=== PATIENT | female | born 1960 | race Caucasian/White ===

== ENCOUNTER 2017-10-14 18:45 | Emergency (ER) | payer MEDICAID, OTHER ==
[~2017-10-14] VITALS: Ht 162.6 cm; Wt 72.6 kg
[~2017-10-14 18:45] MED LIST: BENTYL10 MG ORAL; PREDNISONE5 M4 PO; PROAIR HFA8.5 GM INH; THEOPHYLLI PO; ZOFRAN4 MG ORAL
--- NOTE | 2017-10-14 19:39 | Emergency Room Report ---
History of Present Illness General Chief Complaint: Abdominal Pain Source: Patient Present Illness HPI Patient presents with 3 days of epigastric pain. She has felt nauseated. She' s been taking Mylanta. The pain has been severe and she rates it at 11/10. She 's had this problem before and she says is like her gastritis. She denies vomiting blood or having melena. She felt slightly feverish but denies documented temperature. She denies dysuria. She feels dehydrated. She mainly wants a GI cocktail at this time. No chest pain, cough, dyspnea, rashes, joint pain. Denies prior endoscopy. Prior visits for COPD, asthma and hypoxia. Denies wheezing. Allergies: Coded Allergies: No Known Allergies (Unverified , 08/28/13) Patient History Past Medical History: see triage record Social History: Reports: smoking, alcohol use Reviewed Nursing Documentation: PMH: Agreed, PSxH: Agreed Nursing Documentation-PMH Hx Asthma: Yes Review of Systems All Other Systems: negative except mentioned in HPI Physical Exam Vital Signs Date Time Temp Pulse Resp B/P (MAP) Pulse Ox O2 Delivery O2 Flow Rate FiO2 10/14/17 19:09 98.4 101 16 109/79 100 Room Air 98.4 Sp02 EP Interpretation: reviewed, normal General Appearance: well appearing, no apparent distress, GCS 15 Head: normocephalic Eyes: bilateral eye normal inspection, bilateral eye PERRL ENT: moist mucus membranes Neck: supple Respiratory: lungs clear, normal breath sounds Cardiovascular #1: regular rate, rhythm Cardiovascular #2: 2+ radial (R) Gastrointestinal: soft, no guarding, tenderness - epigastric Musculoskeletal: back normal, gait/station normal, normal range of motion Neurologic: alert, oriented x3, grossly normal Psychiatric: mood/affect normal Skin: normal inspection, warm/dry Medical Decision Making Diagnostic Impression: Primary Impression: Gastritis Qualified Codes: K29.00 - Acute gastritis without bleeding Additional Impression: UTI (urinary tract infection) Qualified Codes: N30.00 - Acute cystitis without hematuria ER Course Patient presents with epigastric pain with history of alcohol and tobacco abuse. Differential includes gastritis, acute myocardial infarction, peptic ulcer disease, gastroenteritis amongst others. Evaluation will be with EKG, and labs. The patient was treated with IV hydration, GI cocktail, Pepcid and Zofran and a small dose of morphine. Imaging studies not indicated. EKG without injury. Labs with normal WBC and H/H. Pyuria. Pain resolved with treatment. Discussed need to stop smoking. Patient stable for outpatient observation and treatment. Laboratory Tests Test 10/14/17 19:55 White Blood Count 7.9 K/UL (4.8-10.8) Red Blood Count 6.84 M/UL (4.20-5.40) H Hemoglobin 14.3 G/DL (12.0-16.0) Hematocrit 45.0 % (37.0-47.0) Mean Corpuscular Volume 66 FL (80-99) L Mean Corpuscular Hemoglobin 20.9 PG (27.0-31.0) L Mean Corpuscular Hemoglobin Concent 31.8 G/DL (32.0-36.0) L Red Cell Distribution Width 17.5 % (11.6-14.8) H Platelet Count 317 K/UL (150-450) Mean Platelet Volume 7.7 FL (6.5-10.1) Neutrophils (%) (Auto) 56.1 % (45.0-75.0) Lymphocytes (%) (Auto) 30.7 % (20.0-45.0) Monocytes (%) (Auto) 9.8 % (1.0-10.0) Eosinophils (%) (Auto) 2.2 % (0.0-3.0) Basophils (%) (Auto) 1.1 % (0.0-2.0) Prothrombin Time 10.0 SEC (9.30-11.50) Prothrombin Time INR 1.0 (0.9-1.1) PTT 27 SEC (23-33) Urine Color Yellow Urine Appearance Slightly cloudy Urine pH 5 (4.5-8.0) Urine Specific Deloit 1.025 (1.005-1.035) Urine Protein 2+ (NEGATIVE) H Urine Glucose (UA) Negative (NEGATIVE) Urine Ketones 1+ (NEGATIVE) H Urine Occult Blood 1+ (NEGATIVE) H Urine Nitrite Negative (NEGATIVE) Urine Bilirubin Negative (NEGATIVE) Urine Urobilinogen Normal MG/DL (0.0-1.0) Urine Leukocyte Esterase 1+ (NEGATIVE) H Urine RBC 0-2 /HPF (0 - 2) Urine WBC 5-10 /HPF (0 - 2) H Urine Squamous Epithelial Cells Moderate /LPF (NONE/OCC) H Urine Bacteria Moderate /HPF (NONE) H Sodium Level 139 MMOL/L (136-145) Potassium Level 4.0 MMOL/L (3.5-5.1) Chloride Level 103 MMOL/L (98-107) Carbon Dioxide Level 28 MMOL/L (21-32) Anion Gap 8 mmol/L (5-15) Blood Urea Nitrogen 13 mg/dL (7-18) Creatinine 0.9 MG/DL (0.55-1.30) Estimate Glomerular Filtration Rate > 60 mL/min (>60) Glucose Level 111 MG/DL (74-106) H Calcium Level 9.6 MG/DL (8.5-10.1) Total Bilirubin 0.7 MG/DL (0.2-1.0) Aspartate Amino Transferase (AST) 18 U/L (15-37) Alanine Aminotransferase (ALT) 34 U/L (12-78) Alkaline Phosphatase 115 U/L (46-116) Troponin I 0.000 ng/mL (0.000-0.056) Total Protein 8.1 G/DL (6.4-8.2) Albumin 4.0 G/DL (3.4-5.0) Globulin 4.1 g/dL Albumin/Globulin Ratio 1.0 (1.0-2.7) Lipase 86 U/L (73-393) EKG Diagnostic Results Rate: normal Rhythm: NSR ST Segments: no acute changes Rhythm Strip Diag. Results EP Interpretation: yes Rhythm: NSR, no PVC's, no ectopy Last Vital Signs Date Time Temp Pulse Resp B/P (MAP) Pulse Ox O2 Delivery O2 Flow Rate FiO2 10/14/17 21:51 98.4 68 18 134/64 100 Room Air 98.4 Status: improved Disposition: HOME, SELF-CARE Condition: Improved Scripts Mag Hydrox/Al Hydrox/Simeth (MAALOX MAXIMUM STRENGTH SUSP) 355 Ml Oral.susp 30 ML PO Q6HR, #240 ML Prov: Inocencio Rodriguez M.D. 10/14/17 Famotidine (PEPCID) 20 Mg Tablet 20 MG ORAL DAILY, #30 TAB 0 Refills Prov: Inocencio Rodriguez M.D. 10/14/17 Inocencio Rodriguez M.D. Oct 14, 2017 19:39
[2017-10-14] MEDS ORDERED: Dicyclomine HCl 10mg/5ml oral soln ORAL ONE (19:45)
[2017-10-14] MEDS ORDERED: Mylanta II UD 30ml ORAL ONE (19:45)
[2017-10-14] MEDS ORDERED: Morphine Sulfate 2mg/ml Inj IVP ONE (19:45)
[2017-10-14] MEDS ORDERED: Lidocaine 2% Visc 15ml soln ORAL ONE (19:45)
[2017-10-14 20:11] LABS: BASOPHILS % (AUTO) 1.1 % (0.0-2.0); EOSINOPHILS % (AUTO) 2.2 % (0.0-3.0); HEMOGLOBIN 14.3 G/DL (12.0-16.0); LYMPHOCYTES % (AUTO) 30.7 % (20.0-45.0); MEAN CORPUSCULAR VOLUME 66 FL (80-99); MONOCYTES % (AUTO) 9.8 % (1.0-10.0); NEUTROPHILS % (AUTO) 56.1 % (45.0-75.0); PLATELET COUNT 317 K/UL (150-450); RED BLOOD COUNT 6.84 M/UL (4.20-5.40); RED CELL DISTRIBUTION WIDTH 17.5 % (11.6-14.8); WHITE BLOOD COUNT 7.9 K/UL (4.8-10.8)
[2017-10-14 20:17] LABS: APPEARANCE,URINE SLIGHTLY CLOUDY; BILIRUBIN, URINE NEGATIVE (NEGATIVE); GLUCOSE, URINE (UA) NEGATIVE (NEGATIVE); KETONES,URINE 1+ (NEGATIVE); LEUKOCYTE ESTERASE ,URINE 1+ (NEGATIVE); NITRITE,URINE NEGATIVE (NEGATIVE); PH,URINE 5 (4.5-8.0); PROTEIN,URINE 2+ (NEGATIVE); UROBILINOGEN,URINE NORMAL MG/DL (0.0-1.0)
[2017-10-14 20:20] LABS: COLOR,URINE YELLOW
[2017-10-14 20:29] LABS: ANION GAP 8 mmol/L (5-15); BLOOD UREA NITROGEN 13 mg/dL (7-18); CALCIUM 9.6 MG/DL (8.5-10.1); CARBON DIOXIDE 28 MMOL/L (21-32); CHLORIDE 103 MMOL/L (98-107); CREATININE 0.9 MG/DL (0.55-1.30); SODIUM 139 MMOL/L (136-145)
[2017-10-14 20:33] LABS: ALANINE AMINOTRANSFERASE 34 U/L (12-78); ALKALINE PHOSPHATASE 115 U/L (46-116); ASPARTATE AMINO TRANSFERASE 18 U/L (15-37); BILIRUBIN,TOTAL 0.7 MG/DL (0.2-1.0)
[2017-10-14 20:39] VITALS: BP 131/59
[2017-10-14] MEDS ORDERED: MAALOX MAXIMUM355 M1 PO (21:41)
[2017-10-14] MEDS ORDERED: PEPCID20 MG ORAL (21:41)
[2017-10-14 21:50] VITALS: BP 134/64
[2017-10-14 21:51] VITALS: BP 134/64
--- NOTE | 2017-10-17 20:16 | Cardiology Report ---
APPROVED REPORT EKG Measurement Heart [id number] [id number] CHx298 Normal sinus rhythm Normal ECG
== END 2017-10-14 21:53 | disposition home or self-care (01) ==
LOC: EMR 19:36
DX: K29.00 Acute gastritis without bleeding (principal); N30.00 Acute cystitis without hematuria; F17.200 Nicotine dependence, unspecified, uncomplicated; J44.9 Chronic obstructive pulmonary disease, unspecified
CPT/HCPCS: 36415; 80053; 81003; 83690; 84484; 85025; 85610; 85730; 87086; 93005; 96361; 96374; 96375; 99284; J2270; J2405; S0028

== ENCOUNTER 2018-10-20 17:49 | Emergency (ER) | payer MEDICAID ==
[~2018-10-20] VITALS: Ht 162.6 cm; Wt 79.4 kg
[~2018-10-20 17:49] MED LIST changes: +MAALOX MAXIMUM355 M1 PO; +PEPCID20 MG ORAL
--- NOTE | 2018-10-20 18:00 | NUR ---
ED Nurse Note: Patient walked into Ed, patient felt her eye lash in her left eye, this morning, patient woke up with left eye redness. patient denies any blurry vision and pain. a/o x4, ambulatory.
--- NOTE | 2018-10-20 18:01 | NUR ---
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
[2018-10-20 18:16] VITALS: BP 127/46
--- NOTE | 2018-10-20 18:45 | Emergency Room Report ---
History of Present Illness General Chief Complaint: Eye Problems Source: Patient Present Illness HPI 58-year-old female with history of glaucoma and loss of 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 Patient reports that she continues to scratch her eye however cannot report any blurred vision as she has lost vision in the same iritis or glaucoma. Denies eye pain, pain and tenderness in the same site of sinus, chest pain, rhinorrhea, dizziness and vertigo. Patient also complains of 5 days of cough with green phlegm Denies any fever or chills denies sore throat patient. Has not taken medication for symptom relief Allergies: Coded Allergies: No Known Allergies (Unverified , 08/28/13) Patient History Past Medical History: see triage record Past Surgical History: none, other Social History: Reports: smoking - tobacco Now: No Immunizations: UTD Reviewed Nursing Documentation: PMH: Agreed; PSxH: Agreed Nursing Documentation-PMH Hx Asthma: Yes Review of Systems All Other Systems: negative except mentioned in HPI Physical Exam Vital Signs Date Time Temp Pulse Resp B/P (MAP) Pulse Ox O2 Delivery O2 Flow Rate FiO2 10/20/18 17:57 98.1 87 15 127/46 98 Room Air Sp02 EP Interpretation: reviewed, normal General Appearance: normal inspection, well appearing, no apparent distress, alert, GCS 15 Head: normocephalic, atraumatic Eyes: left eye other - conjunctiva injected, yellow dc ENT: normal ENT inspection, hearing grossly normal, normal pharynx Neck: normal inspection, full range of motion, supple Respiratory: normal inspection, chest non-tender, lungs clear, no rhonchi, no wheezing Cardiovascular #1: normal inspection, regular rate, rhythm, no murmur, normal capillary refill Gastrointestinal: normal inspection, soft Genitourinary: no CVA tenderness Musculoskeletal: normal inspection Neurologic: normal inspection, alert Psychiatric: normal inspection, judgement/insight normal Skin: normal inspection, normal color, no rash Lymphatic: normal inspection, no adenopathy Medical Decision Making PA Attestation All diagnoses and treatment plans are reviewed and discussed with my supervising physician Diagnostic Impression: Primary Impression: Sinusitis Additional Impression: Bacterial conjunctivitis ER Course 58-year-old female with history of glaucoma and loss of 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 Patient reports that she continues to scratch her eye however cannot report any blurred vision as she has lost vision in the same iritis or glaucoma. Denies eye pain, pain and tenderness in the same site of sinus, chest pain, rhinorrhea, dizziness and vertigo. Patient also complains of 5 days of cough with green phelgm . Denies any fever or chills denies sore throat patient. Has not taken medication for symptom relief Ddx considered but are not limited to sinusitis, bacterial conjunctivitis, PNA, bronchitis, corneal ulcer Vital signs: are WNL, pt. is afebrile H&PE are most consistent with sinusitis, bacterial conjunctivitis ORDERS: augmentin(for both eye and chest), ofloxacin ED INTERVENTIONS: None required at this time. DISCHARGE: At this time pt. is stable for d/c to home. Will provide printed patient care instructions, and any necessary prescriptions. Care plan and follow up instructions have been discussed with the patient prior to discharge. continue with phenergen Last Vital Signs Date Time Temp Pulse Resp B/P (MAP) Pulse Ox O2 Delivery O2 Flow Rate FiO2 10/20/18 18:16 98.1 87 15 127/46 98 Room Air Disposition: HOME, SELF-CARE Condition: Stable Scripts Ofloxacin (OFLOXACIN) 5 Ml Drops 2 DROP OPHTHALM BID for 5 Days, #5 ML Prov: Gene Asencio 10/20/18 Amoxicillin/Potassium Clav 875-125* (AUGMENTIN 875-125 TABLET*) 1 Each Tablet 1 TAB ORAL TWICE A DAY for 10 Days, #20 TAB Prov: Gene Asencio 10/20/18 Patient Instructions: Bacterial Conjunctivitis, [id number], Sinusitis, Adult , [id number] Additional Instructions: see instrument technologist due to your glaucoma and no vision as you may have a deeper eye infection. Gene Asencio Oct 20, 2018 18:45
[2018-10-20] MEDS ORDERED: OFLOXACIN5 ML OPHTHALM (18:46)
[2018-10-20] MEDS ORDERED: AUGMENTIN 875-1 EAC1 ORAL (18:46)
[2018-10-20 19:00] VITALS: BP 127/46
--- NOTE | 2018-10-20 19:01 | NUR ---
ER DISCHARGE NOTE: Patient is cleared to be discharged per ERMD, pt is aox4, on room air, with stable vital signs. pt was given dc and prescription instructions, pt was able to verbalize understanding, pt id band removed without complications. pt is able to ambulate with steady gait. pt took all belongings.
== END 2018-10-20 18:55 | disposition home or self-care (01) ==
LOC: EMR 18:34
DX: H10.89 Other conjunctivitis (principal); B96.89 Other specified bacterial agents as the cause of diseases classified elsewhere; J32.9 Chronic sinusitis, unspecified; J45.909 Unspecified asthma, uncomplicated; H40.9 Unspecified glaucoma; I10 Essential (primary) hypertension
CPT/HCPCS: 99282